=== PATIENT | female | born 1990 | race Caucasian/White ===

== ENCOUNTER 2016-04-08 10:36 | Emergency (ER) | payer SELFPAY ==
[2016-04-08] MEDS ORDERED: DUONEB INH ONE (12:00)
[2016-04-08] MEDS ORDERED: METHYLPRED SOD SUCC 125 MG/2 ML VIAL ONE (12:05)
== END 2016-04-08 13:41 | disposition home or self-care (01) ==
LOC: ER 10:36
DX: J20.9 Acute bronchitis, unspecified (principal)
CPT/HCPCS: 71020; 94640; 96372